=== PATIENT | female | born 1995 | race Caucasian/White ===

== ENCOUNTER 2016-12-21 11:29 | Emergency (ER) | payer OTHER ==
[2016-12-21 12:59] VITALS: BP 114/78
--- NOTE | 2016-12-21 13:32 | UC ---
Throat Pain/Nasal [place] HPI - HPI Summary HPI Summary: cough and nasal drainage with green sputum, facial pain worsening over the week , - History of Current Complaint Chief Complaint: UCRespiratory Stated Complaint: SORE THROAT COUGH CONGESTION Time Seen by Provider: 12/21/16 13:25 Hx Obtained From: Patient Hx Last Menstrual Period: 12/18/16 ?: No Onset/Duration: Gradual Onset, Lasting Weeks - 10 days, Still Present, Worse Since - past 5 days Severity: Moderate Pain Intensity: 6 Pain Scale Used: 0-10 Numeric Cough: Sputum Appears - thick green Associated Signs & Symptoms: Positive: Sinus Discomfort, Nasal Discharge - Allergies/Home Medications Allergies/Adverse Reactions: Allergies Allergy/AdvReac Type Severity Reaction Status Date / Time No Known Allergies Allergy Verified 12/21/16 12:53 Home Medications: Home Medications Acetaminophen 1,000 mg PO ONCE PRN 12/21/16 [History Confirmed 12/21/16] PMH/Surg Hx/FS Hx/Imm Hx Previously Healthy: No - sinus infections Endocrine History Of: Denies: Diabetes Cardiovascular History Of: Denies: Cardiac Disorders Respiratory History Of: Denies: Asthma - Surgical History Surgical History: None - Family History Known Family History: Negative: Cardiac Disease, Hypertension, Diabetes Family History: no cardio-vascular issues in family lineage - Social History Occupation: Student Lives: With Family Alcohol Use: Occasionally Substance Use Type: None Smoking Status (MU): Never Smoked Tobacco - Immunization History Most Recent Influenza Vaccination: not this season Review of Systems Constitutional: Chills, Fatigue Skin: Negative Eyes: Negative ENT: Sore Throat, Nasal Discharge Respiratory: Cough Cardiovascular: Negative Gastrointestinal: Negative Genitourinary: Negative Motor: Negative Neurovascular: Negative Musculoskeletal: Negative Neurological: Headache Psychological: Negative All Other Systems Reviewed And Are Negative: Yes Physical Exam Triage Information Reviewed: Yes Appearance: Well-Appearing - mild, Well-Nourished, Pain Distress - grimace Vital Signs: Initial Vital Signs Temp 99.3 F 12/21/16 12:55 Pulse 75 12/21/16 12:55 Resp 18 12/21/16 12:55 BP 114/78 12/21/16 12:55 Pulse Ox 100 12/21/16 12:55 Vital Signs Reviewed: Yes Eye Exam: Normal Eyes: Positive: Conjunctiva Clear ENT Exam: Normal ENT: Positive: Normal ENT inspection, Hearing grossly normal, Pharynx normal, Nasal congestion, Nasal drainage, TMs normal. Negative: Tonsillar swelling, Tonsillar exudate, Trismus, Muffled/hoarse voice Dental Exam: Normal Neck exam: Normal Neck: Positive: Supple, Nontender, No Lymphadenopathy Respiratory Exam: Normal Respiratory: Positive: Chest non-tender, Lungs clear, Normal breath sounds, No respiratory distress, No accessory muscle use Cardiovascular Exam: Normal Cardiovascular: Positive: RRR, No Murmur, Pulses Normal, Brisk Capillary Refill Musculoskeletal Exam: Normal Musculoskeletal: Positive: Strength Intact, ROM Intact, No Edema Neurological Exam: Normal Neurological: Positive: Alert, Muscle Tone Normal Psychological Exam: Normal Skin Exam: Normal Throat Pain/Nasal Course/Dx - Course Course Of Treatment: augmentin, flonase, tessalon, increase fluids follow with pcp re-check prn - Differential Dx/Diagnosis Differential Diagnosis/HQI/PQRI: Pharyngitis, Sinusitis, URI Provider Diagnoses: Sinusitis Discharge - Discharge Plan Condition: Stable Disposition: HOME Prescriptions: Amoxicillin/Clavulanate TAB* [Augmentin TAB 875*] 875 mg PO BID #20 tab Benzonatate CAP* [Tessalon CAP*] 100 mg PO TID PRN #30 cap PRN Reason: cough Fluticasone NASAL SPRAY 50MCG* [Flonase NASAL SPRAY 50MCG*] 2 spray BOTH NARES DAILY #1 btl Patient Education Materials: Rhinosinusitis (ED), How to Use Nasal [place] (ED) Forms: *School Release Referrals: Non Staff,Doctor [Primary Care Provider] - Additional Instructions: Follow at [facility] or return to urgent care should symptoms fail to improve or worsen
== END 2016-12-21 13:40 | disposition home or self-care (01) ==
LOC: UCCORT 11:29
DX: J32.9 Chronic sinusitis, unspecified (principal)
CPT/HCPCS: 99212; G0463

== ENCOUNTER 2017-02-18 10:52 | Emergency (ER) | payer OTHER ==
[2017-02-18 11:38] VITALS: BP 100/53
[2017-02-18] MEDS ORDERED: Polymyx/Trimethoprim OPTH* 10 ML BTL BOTH EYES ONE (12:04)
--- NOTE | 2017-02-18 12:05 | UC ---
Eye Complaint HPI - HPI Summary HPI Summary: 21 yo female with sinus pressure and pain x 2 weeks no f/c now with red eyes matted shut no photophobia - History of Current Complaint Chief Complaint: UCGeneralIllness Stated Complaint: EYE COMPLAINT Time Seen by Provider: 02/18/17 11:58 Hx Obtained From: Patient Hx Last Menstrual Period: 02/12/17 Onset/Duration: Sudden Onset, Lasting Weeks - sinus symptoms x 2 weeks pink eye x 2 days Timing: Constant Severity Initially: Moderate Severity Currently: Mild Pain Intensity: 2 Pain Scale Used: 0-10 Numeric Location of Injury: Conjunctiva Aggravating Factor(s): Nothing Alleviating Factor(s): Nothing Associated Signs And Symptoms: Positive: Drainage (Purulent) - Allergies/Home Medications Allergies/Adverse Reactions: Allergies Allergy/AdvReac Type Severity Reaction Status Date / Time No Known Allergies Allergy Verified 12/21/16 12:53 PMH/Surg Hx/FS Hx/Imm Hx Previously Healthy: Yes Endocrine History Of: Denies: Diabetes Cardiovascular History Of: Denies: Cardiac Disorders Respiratory History Of: Denies: Asthma - Surgical History Surgical History: None - Family History Known Family History: Negative: Cardiac Disease, Hypertension, Diabetes Family History: no cardio-vascular issues in family lineage - Social History Alcohol Use: Occasionally Substance Use Type: None Smoking Status (MU): Never Smoked Tobacco - Immunization History Most Recent Influenza Vaccination: not this season Review of Systems Constitutional: Negative Skin: Negative Eyes: Drainage, Eye Redness ENT: Nasal Discharge Respiratory: Negative Cardiovascular: Negative Gastrointestinal: Negative Genitourinary: Negative Motor: Negative Neurovascular: Negative Musculoskeletal: Negative Neurological: Negative Psychological: Negative All Other Systems Reviewed And Are Negative: Yes Physical Exam Triage Information Reviewed: Yes Appearance: Well-Appearing, No Pain Distress, Well-Nourished Vital Signs: Initial Vital Signs Temp 97.5 F 02/18/17 11:33 Pulse 65 02/18/17 11:33 Resp 14 02/18/17 11:33 BP 100/53 02/18/17 11:33 Pulse Ox 99 02/18/17 11:33 Vital Signs Reviewed: Yes Eyes: Positive: Conjunctiva Inflamed, Discharge ENT: Positive: Hearing grossly normal, Nasal congestion, Nasal drainage, TMs normal, Other: - bilat max sinus tenderness. Negative: Tonsillar exudate, Trismus, Muffled/hoarse voice Dental Exam: Normal Neck: Positive: Supple, Nontender, No Lymphadenopathy Respiratory: Positive: Lungs clear, Normal breath sounds, No respiratory distress Cardiovascular: Positive: RRR, No Murmur Musculoskeletal: Positive: ROM Intact, No Edema Neurological: Positive: Alert Psychological Exam: Normal Skin Exam: Normal Eye Complaint Course/Dx - Differential Dx/Diagnosis Provider Diagnoses: acute sinusitis. bilateral conjunctivitis Discharge - Discharge Plan Condition: Stable Disposition: HOME Prescriptions: Amoxicillin (*) [Amoxicillin 875 MG (*)] 875 mg PO BID #20 tab Patient Education Materials: Conjunctivitis (ED), Sinusitis (ED) Referrals: Non Staff,Doctor [Primary Care Provider] - Additional Instructions: no contact lens use x 1 week recheck for worsening symptoms recheck in 4 days if not better
[2017-02-18] MEDS ORDERED: Polymyx/Trimethoprim OPTH* 10 ML BTL BOTH EYES SCH (12:09)
== END 2017-02-18 12:31 | disposition home or self-care (01) ==
LOC: UCCORT 10:52
DX: J01.90 Acute sinusitis, unspecified (principal); H10.9 Unspecified conjunctivitis
CPT/HCPCS: 99212; G0463